=== PATIENT | female | born 1950 | race Caucasian/White ===

== ENCOUNTER 2021-03-29 20:08 | Emergency (ER) | payer OTHER ==
[~2021-03-29] VITALS: Ht 167.6 cm; Wt 86.2 kg
== END 2021-03-29 21:00 | disposition home or self-care (01) ==
LOC: ER 20:46
DX: R18.8 Other ascites (principal); K76.9 Liver disease, unspecified; I10 Essential (primary) hypertension; I50.9 Heart failure, unspecified; E78.5 Hyperlipidemia, unspecified; N18.9 Chronic kidney disease, unspecified
CPT/HCPCS: 99282